=== PATIENT | female | born 1980 | race Caucasian/White ===

== ENCOUNTER 2016-05-25 15:38 | Emergency (ER) | payer OTHER ==
[~2016-05-25] VITALS: Ht 172.7 cm; Wt 90.9 kg
[2016-05-25 15:41] VITALS: TEMP 98.1
[2016-05-25] MEDS ORDERED: MULTI VITAMINS1 TAB PO (15:45)
[2016-05-25] MEDS ORDERED: CEPHALEXIN500 M1 PO (15:46)
[2016-05-25 16:34] LABS: BASO # 0.1 (0.0-0.2); BASO % 0.5 % (0.0-2.0); EOS # 0.1 (0.0-0.7); EOS % 1.3 % (0-4.0); GRAN % 64.9 % (42.2-75.2); HEMATOCRIT 38.5 % (37.0-47.0); HEMOGLOBIN 13.4 g/dl (12.5-16.0); LYMPH # 2.5 (1.2-3.4); LYMPH % 27.5 % (20.0-51.0); MEAN CELL VOLUME 91 fl (80.0-100.0); MEAN CORPUSCULAR HEMOGLOBIN 32 pg (27.0-31.0); MEAN CORPUSCULAR HGB CONC 35 g/dl (33.0-37.0); MONO # 0.5 (0.1-0.6); MONO % 5.5 % (1.7-9.3); PLATELET COUNT 268 K/mm3 (130-400); RED BLOOD COUNT 4.24 M/mm3 (4.10-5.30); REDCELL DISTRIBUTION WIDTH-CV 13.2 % (11.5-14.5); WHITE BLOOD COUNT 9.2 K/mm3 (4.8-10.8)
[2016-05-25 16:55] LABS: ADJUSTED CALCIUM 8.8 mg/dL (8.4-10.2); ALANINE AMINOTRANSFERASE 29 U/L (9-52); ALBUMIN 4.4 gm/dL (3.5-5.0); ALKALINE PHOSPHATASE 67 U/L (50-136); ANION GAP 12 mmol/L (7-16); BILIRUBIN,TOTAL 0.7 mg/dL (0.0-1.0); BLOOD UREA NITROGEN 15 mg/dL (7-17); CALCIUM 9.1 mg/dL (8.4-10.2); CARBON DIOXIDE 25 mmol/L (22-30); CHLORIDE 103 mmol/L (98-107); CREATININE, serum 0.91 mg/dL (0.52-1.25); GLUCOSE 80 mg/dL (74-106); SODIUM 140 mmol/L (137-145); TOTAL PROTEIN 7.2 gm/dL (6.4-8.2)
[2016-05-25 16:56] LABS: C-REACTIVE PROTEIN < 0.5 mg/dL (0.0-0.9)
[2016-05-25 17:09] LABS: PROLACTIN 16.2 ng/mL (3.0-18.6)
[2016-05-25] MEDS ORDERED: VALTREX1 GM PO (18:06)
[2016-05-25] MEDS ORDERED: PREDNISONE20 MG PO (18:06)
[2016-05-25 18:19] VITALS: BP 112/79; PULSE 84
== END 2016-05-25 18:31 | disposition home or self-care (01) ==
LOC: COL.ER 15:38
PROVIDERS: Emergency Medicine
DX: G51.0 Bell's palsy (principal); Z85.820 Personal history of malignant melanoma of skin
CPT/HCPCS: A9585; J7512

== ENCOUNTER 2017-06-14 10:46 | Emergency (ER) | payer OTHER ==
[~2017-06-14] VITALS: Ht 172.7 cm; Wt 97.7 kg
[~2017-06-14 10:46] MED LIST: CEPHALEXIN500 M1 PO; MULTI VITAMINS1 TAB PO; PREDNISONE20 MG PO; VALTREX1 GM PO
[2017-06-14 10:55] VITALS: BP 120/77; TEMP 98.5
[2017-06-14] MEDS ORDERED: GLUCOPHAGE XR500 M1 PO (11:40)
[2017-06-14] MEDS ORDERED: B-121000 MCG PO (11:40)
[2017-06-14] MEDS ORDERED: LIPITOR 10MG10 MG PO (11:40)
[2017-06-14] MEDS ORDERED: CONTRAVE1 TER PO (11:41)
[2017-06-14 11:44] LABS: COLLECTION METHOD CLEAN CATCH
[2017-06-14 11:59] LABS: MUCOUS Present /lpf; PH 6 (5-8); SQUAMOUS EPITHELIAL 0-2 /hpf; URINE APPEARANCE Clear; URINE BACTERIA None Seen /hpf; URINE BILIRUBIN Negative (NEGATIVE); URINE BLOOD 1+ (NEGATIVE); URINE COLOR Yellow; URINE GLUCOSE Negative (NEGATIVE); URINE KETONE Negative (NEGATIVE); URINE LEUKOCYTE ESTERASE Negative (NEGATIVE); URINE NITRATE Negative (NEGATIVE); URINE PROTEIN(semi-quant) Negative (NEGATIVE); URINE RBC 0-2 /hpf; URINE UROBILINOGEN Negative (NEGATIVE)
[2017-06-14] MEDS ORDERED: FLEXERIL 1010 MG/TAB PO (13:10)
[2017-06-14] MEDS ORDERED: NORCO 325 MG-7.1 TAB PO (13:10)
[2017-06-14] MEDS ORDERED: FLOMAX 0.40.4 MG/CAP PO (13:10)
[2017-06-14 13:16] VITALS: PULSE 92
== END 2017-06-14 13:17 | disposition home or self-care (01) ==
LOC: COL.ER 10:46
PROVIDERS: Physician Assistant
DX: S39.012A Strain of muscle, fascia and tendon of lower back, initial encounter (principal); R10.9 Unspecified abdominal pain; Z87.442 Personal history of urinary calculi; Z90.710 Acquired absence of both cervix and uterus; Z98.890 Other specified postprocedural states; Z79.84 Long term (current) use of oral hypoglycemic drugs; Z88.2 Allergy status to sulfonamides; X50.1XXA Overexertion from prolonged static or awkward postures, initial encounter
CPT/HCPCS: J1885; J2360

== ENCOUNTER 2020-08-14 03:31 | Emergency (ER) | payer OTHER ==
[~2020-08-14] VITALS: Ht 170.2 cm; Wt 100.0 kg
[~2020-08-14 03:31] MED LIST changes: +B-121000 MCG PO; +CONTRAVE1 TER PO; +FLEXERIL 1010 MG/TAB PO; +FLOMAX 0.40.4 MG/CAP PO; +GLUCOPHAGE XR500 M1 PO; +LIPITOR 10MG10 MG PO; +NORCO 325 MG-7.1 TAB PO
[2020-08-14 03:37] VITALS: TEMP 97.5
[2020-08-14 05:20] VITALS: BP 121/75; PULSE 88
== END 2020-08-14 05:20 | disposition home or self-care (01) ==
LOC: COL.ER 03:31
DX: G43.909 Migraine, unspecified, not intractable, without status migrainosus (principal); Z79.899 Other long term (current) drug therapy
CPT/HCPCS: J1200; J1885; J2060; J2765; J7030

== ENCOUNTER 2020-12-21 10:39 | Emergency (ER) | payer OTHER ==
[~2020-12-21] VITALS: Ht 170.2 cm; Wt 97.7 kg
[2020-12-21 10:51] VITALS: TEMP 98.3
[2020-12-21 11:25] LABS: BASO % 0.6 % (0.0-2.0); EOS # 0.1 K/mm3 (0.0-0.7); HEMATOCRIT 37.1 % (37.0-47.0); HEMOGLOBIN 12.4 g/dl (12.5-16.0); LYMPH # 1.9 K/mm3 (1.2-3.4); LYMPH % 34.8 % (20.0-51.0); MEAN CELL VOLUME 91 fl (80.0-100.0); MEAN CORPUSCULAR HEMOGLOBIN 30 pg (27.0-31.0); MEAN CORPUSCULAR HGB CONC 33 g/dl (33.0-37.0); MEAN PLATELET VOLUME 9.6 fl (7.4-10.4); MONO # 0.4 K/mm3 (0.1-0.6); MONO % 7.2 % (1.7-9.3); PLATELET COUNT 266 K/mm3 (130-400); RED BLOOD COUNT 4.09 M/mm3 (4.10-5.30); REDCELL DISTRIBUTION WIDTH-CV 12.4 % (11.5-14.5)
[2020-12-21 11:36] LABS: PROTHROMBIN TIME 11.2 SECONDS (9.7-12.8)
[2020-12-21 11:39] LABS: PARTIAL THROMBOPLASTIN TIME 33.8 SECONDS (26.0-37.0)
[2020-12-21 12:18] LABS: ALANINE AMINOTRANSFERASE 13 U/L (0-55); ALBUMIN 3.7 gm/dL (3.5-5.0); ALKALINE PHOSPHATASE 38 U/L (40-150); ANION GAP 11 mmol/L (7-16); AST,SGOT 17 U/L (5-34); BILIRUBIN,TOTAL 0.2 mg/dL (0.2-1.2); BLOOD UREA NITROGEN 13 mg/dL (7-19); CARBON DIOXIDE 22 mmol/L (22-29); CHLORIDE 107 mmol/L (98-107); CREATININE, serum 1.13 mg/dL (0.57-1.11); GLUCOSE 145 mg/dL (70-99); POTASSIUM 4.1 mmol/L (3.5-4.5); SODIUM 140 mmol/L (136-145); TOTAL PROTEIN 6.6 gm/dL (6.2-8.1)
[2020-12-21 12:28] LABS: TROPONIN-I < 0.010 ng/mL (0.00-0.033)
[2020-12-21] MEDS ORDERED: FLEXERIL 1010 MG/TAB PO (13:20)
[2020-12-21] MEDS ORDERED: MEDROL 4MG DOSPA4 MG PO (13:20)
[2020-12-21] MEDS ORDERED: NORCO 325 MG-51 TAB PO (13:20)
[2020-12-21 13:42] VITALS: BP 123/88; PULSE 80
== END 2020-12-21 13:42 | disposition home or self-care (01) ==
LOC: COL.ER 10:39
PROVIDERS: Family Medicine
DX: M54.12 Radiculopathy, cervical region (principal); G43.909 Migraine, unspecified, not intractable, without status migrainosus; E78.5 Hyperlipidemia, unspecified; Z79.899 Other long term (current) drug therapy
CPT/HCPCS: J1885

== ENCOUNTER → 2021-06-18 | Outpatient (CLI) | payer OTHER ==
[~2021-06-18] MED LIST changes: +MEDROL 4MG DOSPA4 MG PO; +NORCO 325 MG-51 TAB PO
== END ==
LOC: MC.RAD 09:43
DX: Z12.31 Encounter for screening mammogram for malignant neoplasm of breast (principal)

== ENCOUNTER 2022-06-01 06:52 | Day surgery (SDC) | payer OTHER ==
[~2022-06-01] VITALS: Ht 170.2 cm; Wt 92.4 kg
[2022-06-01] MEDS ORDERED: CELEXA 20MG20 MG/TAB PO (09:24)
[2022-06-01] MEDS ORDERED: SYNTHROID0.075 MG/T PO (09:25)
[2022-06-01] MEDS ORDERED: ESTRACE2 MG PO (09:26)
[2022-06-01] MEDS ORDERED: OSCAL 500 TAB500 MG PO (09:26)
[2022-06-01] MEDS ORDERED: MULTI VITAMINS1 TAB PO (09:28)
[2022-06-01] MEDS ORDERED: NORCO 325 MG-51 TAB PO (10:59)
[2022-06-01 11:09] VITALS: BP 133/75; PULSE 70; TEMP 98.2
[2022-06-01 11:45] VITALS: BP 124/72; PULSE 80; TEMP 98.2
[2022-06-01 12:00] VITALS: BP 119/70; PULSE 74
[2022-06-01 12:15] VITALS: BP 118/75; PULSE 86
[2022-06-01 12:30] VITALS: BP 111/67; PULSE 88
--- NOTE | 2022-06-01 12:40 | NUR ---
1145 RETURNS TO ROOM 8 PER CART. AWAKE, ALERT. RESP UNLABORED. HOB ELEVATED 40 DEGREES. VITAL SIGNS OBTAINED. DRESSING RIGHT GROIN CLEAN DRY AND INTACT. EXPRESSES COMFORT. CALL LIGHT AT SIDE. AND MOTHER IN ROOM. 1200 TOLERATES PO JUICE WITHOUT NAUSEA 1215 TOLERATES PO MUFFIN. EXPRESSES COMFORT. 1225 DISCHARGE INSTRUCTIONS REVIEWED. PATIENT VERBALIZES UNDERSTANDING. COPY PROVIDED IN DISCHARGE FOLDER. 1232 SITS ON EDGE OF BED. DRESSES SELF. DRESSING REMAINS CLEAN DRY AND INTACT
== END 2022-06-01 12:40 | disposition home or self-care (01) ==
LOC: SDCO 06:52
DX: C43.71 Malignant melanoma of right lower limb, including hip (principal); Z87.891 Personal history of nicotine dependence
CPT/HCPCS: A9520; J0690; J1100; J1170; J2250; J2405; J2704; J2795; J3010; J7120

== ENCOUNTER → 2023-04-12 | Outpatient (CLI) | payer OTHER ==
[~2023-04-12] MED LIST changes: +CELEXA 20MG20 MG/TAB PO; +ESTRACE2 MG PO; +OSCAL 500 TAB500 MG PO; +SYNTHROID0.075 MG/T PO
== END ==
LOC: MC.RAD 16:06
DX: Z12.31 Encounter for screening mammogram for malignant neoplasm of breast (principal)

== ENCOUNTER 2023-10-08 05:51 | Day surgery (SDC) | payer OTHER ==
[2023-10-08] VITALS (8 sets, daily range): BP systolic 110–120; BP diastolic 62–76; PULSE 62–74; TEMP 97–98.6
[~2023-10-08] VITALS: Ht 170.2 cm; Wt 77.1 kg
[~2023-10-08 05:51] MED LIST changes: +LR 1,000 ML IV SCH; +PERCOCET 325 MG1 TA2 PO
[2023-10-08] MEDS ORDERED: LEVAQUIN 5500 MG/TA1 PO (06:05)
[2023-10-08] MEDS ORDERED: ROXICODONE 55 MG/TAB PO (06:11)
[2023-10-08] MEDS ORDERED: dexAMETHasone 10 MG/ML VIAL ONE (07:35)
[2023-10-08] MEDS ORDERED: NS 10 ML IV ONE (07:35)
[2023-10-08] MEDS ORDERED: Ondansetron 4 MG/2 ML VIAL ONE (07:35)
[2023-10-08] MEDS ORDERED: Ketorolac 30 MG/ML VIAL ONE (07:35)
[2023-10-08] MEDS ORDERED: Lidocaine PF 2% (20 MG/ML) 5 ML VIAL ONE (07:35)
[2023-10-08] MEDS ORDERED: fentaNYL 50 MCG/ML 2 ML VIAL ONE (07:35)
[2023-10-08] MEDS ORDERED: Glycopyrrolate 0.2 MG/ML 1 ML VIAL ONE (07:35)
--- NOTE | 2023-10-08 07:35 | NUR ---
pt off floor for procedure.
[2023-10-08] MEDS ORDERED: HYDROmorphone 1 MG/1 ML SYRINGE [PACU/SDC ONLY] IV PRN (07:45)
[2023-10-08] MEDS ORDERED: fentaNYL 50 MCG/ML 1 ML SYRINGE/VIAL [PACU/SDC ONLY] IV PRN (07:45)
[2023-10-08] MEDS ORDERED: droPERidol 2.5 MG/ML 2 ML VIAL IV PRN (07:45)
[2023-10-08] MEDS ORDERED: Ondansetron 4 MG/2 ML VIAL IV PRN ×2 (07:45→08:45)
[2023-10-08] MEDS ORDERED: hydrALAZINE 20 MG/ML 1 ML VIAL IV PRN (07:45)
[2023-10-08] MEDS ORDERED: Lidocaine 2% (20 MG/ML) 20 ML UROJET UR ONE (08:17)
[2023-10-08] MEDS ORDERED: Acetaminophen 325 MG TAB PO PRN (08:45)
[2023-10-08] MEDS ORDERED: oxyCODONE 5 MG TAB PO PRN (08:45)
[2023-10-08] MEDS ORDERED: Hyoscyamine 0.125 MG Sublingual TAB SL PRN (08:45)
[2023-10-08] MEDS ORDERED: Naloxone 0.4 MG/ML VIAL IV PRN (08:45)
--- NOTE | 2023-10-08 09:05 | NUR ---
pt back from surgery, mother at bedside. pt denies pain. tolerating ice chips. has been up in PACU already to pee. vss. no needs at this time. call light in reach.
[2023-10-08] MEDS ORDERED: Acetaminophen 500 MG TAB PO SCH (09:36)
--- NOTE | 2023-10-08 09:55 | NUR ---
SW met with patient to complete intake and discuss discharge planning. Patient's mother was present with patient and permitted to remain in room by patient during this intake process. Patient confirmed that she resides in [place] with her (Newton Santiago [phone]). Patient reports that her PCP is Dr. Campos and pharmacy of choice is [facility] location. Patient communicated that she is independent with ADLs and currently does not use any DMEs. Patient does not have DPOA on file, informed SW that her and spouse working on getting those set up- declined forms with hospital. Discharge plan: home
--- NOTE | 2023-10-08 12:11 | NUR ---
INT discontinued. discharge instructions given to pt, all questions answered.
--- NOTE | 2023-10-08 12:18 | NUR ---
pt escorted to personal vehicle by wheelchair.
== END 2023-10-08 12:18 | disposition home or self-care (01) ==
LOC: SURG 05:51 → SDCO 05:51 → SURG 12:18
DX: N20.2 Calculus of kidney with calculus of ureter (principal); Z85.820 Personal history of malignant melanoma of skin; Z87.440 Personal history of urinary (tract) infections
CPT/HCPCS: OP; C1769; J0690; J1100; J1885; J2405; J2704; J3010; J7120

== ENCOUNTER 2023-11-27 08:25 | Emergency (ER) | payer OTHER ==
[~2023-11-27] VITALS: Ht 170.2 cm; Wt 77.3 kg
[~2023-11-27 08:25] MED LIST changes: +LEVAQUIN 5500 MG/TA1 PO; -LR 1,000 ML IV SCH; +ROXICODONE 55 MG/TAB PO
[2023-11-27 08:30] VITALS: BP 127/93
[2023-11-27] MEDS ORDERED: Acetaminophen 500 MG TAB PO ONE (09:00)
[2023-11-27] MEDS ORDERED: Doxycycline Monohydrate 100 MG CAP PO ONE (09:45)
[2023-11-27] MEDS ORDERED: Albuterol 90 MCG/PUFF 8 GM MDI IH ONE (09:45)
[2023-11-27] MEDS ORDERED: predniSONE 10 MG TAB PO ONE (09:45)
[2023-11-27] MEDS ORDERED: PREDNISONE50 MG PO ×2 (10:06→14:52)
[2023-11-27] MEDS ORDERED: DOXYCYCLINE 10100 MG PO (10:06)
[2023-11-27 10:14] VITALS: PULSE 78; TEMP 99.6
[2023-11-27] MEDS ORDERED: DOXYCYCLINE HY100 MG PO (14:52)
== END 2023-11-27 10:15 | disposition home or self-care (01) ==
LOC: COL.ER 08:25
DX: J18.9 Pneumonia, unspecified organism (principal); U07.1 COVID-19; Z87.891 Personal history of nicotine dependence
CPT/HCPCS: J7512